=== PATIENT | female | born 1990 | race Caucasian/White ===

== ENCOUNTER → 2020-05-14 | Outpatient (CLI) | payer SELFPAY | LOC: LAB 12:08 | DX: M79.10 Myalgia, unspecified site (principal); R06.02 Shortness of breath; R51.9 Headache, unspecified; Z20.828 Contact with and (suspected) exposure to other viral communicable diseases ==

== ENCOUNTER 2020-10-31 13:49 | Outpatient (RCR) | payer BC | END 2020-11-05 17:00 | disposition home or self-care (01) | LOC: PT 13:49 | DX: M47.816 Spondylosis without myelopathy or radiculopathy, lumbar region (principal); Z98.1 Arthrodesis status ==

== ENCOUNTER → 2024-08-01 | Outpatient (CLI) | payer BC | LOC: RAD 07:23 | DX: M51.16 Intervertebral disc disorders with radiculopathy, lumbar region (principal); M43.9 Deforming dorsopathy, unspecified; M47.27 Other spondylosis with radiculopathy, lumbosacral region ==